=== PATIENT | female | born 1980 | race Asian ===

== ENCOUNTER 2024-10-02 03:09 | Emergency (ER) | payer BC, SELFPAY ==
[2024-10-02 03:18] VITALS: BP 148/85; PULSE 96; RESP 18; TEMP 36.7; O2SAT 97; BMI 25.4
[2024-10-02 03:31] LABS: MANUAL DIFF FLAG NO
[2024-10-02 03:32] LABS: Basophils Absolute Auto 0.1 X10*3/uL (0.0-0.2); Basophils Percent Auto 0.5 % (0-2); Eosinophils Absolute Auto 0.5 X10*3/uL (0.0-0.4); Eosinophils Percent Auto 5.3 % (0-4); Hematocrit 36.6 % (37.0-47.0); Hemoglobin 11.9 g/dl (12.0-16.0); Imm Gran Abs Auto 0.03 X10*3/uL (0.00-0.03); Imm Gran Pct Auto 0.3 % (0.0-0.4); Lymphocytes Percent Auto 20.5 % (20-40); Mean Corpuscular HGB Conc 32.5 g/dl (31.0-35.0); Mean Corpuscular Volume 76.9 fL (80.0-98.0); Mean Platelet Volume 9.4 fL (9.4-12.3); Monocytes Absolute Auto 0.7 X10*3/uL (0.1-1.2); Monocytes Percent Auto 6.9 % (2-11); Neutrophils Absolute Auto 6.4 x10*3/uL (2.0-8.3); Neutrophils Percent Auto 66.5 % (45-73); Platelet Count 375 X10*3/uL (160-400); Red Blood Count 4.76 X10*6/uL (4.20-5.50); Red Cell Distribution Width 18.7 % (11.0-16.0); White Blood Count 9.6 X10*3/uL (4.8-10.8)
[2024-10-02 03:41] LABS: Appearance Urine Turbid; Color Urine Orange; Glucose Urine UA Negative (Negative); Leukocyte Esterase Urine Large (3+) (Negative); Nitrite Urine Positive (Negative); PH 5.5 (5.0-9.0); UMIC TRIGGER UACC YES; Urine Blood Large (3+) (Negative); Urine Ketones Negative (Negative); Urine Protein 300 (3+) mg/dL (Neg-Trace)
[2024-10-02 03:44] LABS: Bacteria Urine Trace (None Seen); Hyaline Casts Urine 0-2 /LPF (0-2); RBC Urine >20 /HPF (0-2); Squamous Epithelial Cell Urine 0-2 /HPF (0-2); UACC Culture Trigger YES; WBC Urine >50 /HPF (0-5)
[2024-10-02 03:46] LABS: Alanine Aminotransferase 20 U/L (0-31); Albumin Level 4.3 g/dL (3.5-5.0); Alkaline Phosphatase 66 U/L (39-117); Anion Gap 14 (12-20); Aspartate Amino Transferase 18 U/L (5-31); Bilirubin Total 0.4 mg/dL (0.0-1.0); Blood Urea Nitrogen 8 mg/dL (9-16); Carbon Dioxide 24 mmol/L (22-29); Chloride 107 mmol/L (96-108); Creatinine Clr Calc Pharmacy 65.5; Estimated Glomerular Filt Rate > 60; Glucose Random 120 mg/dL (60-115); Potassium 3.9 mmol/L (3.3-5.1); Sodium 141 mmol/L (135-145); Total Protein 7.5 g/dL (6.5-8.0)
[2024-10-02 04:01] LABS: UPreg QC Valid YES; Urine Pregnancy NEGATIVE (NEGATIVE)
--- NOTE | 2024-10-02 04:04 | ED_ITS ---
HPI - Female Genitourinary General Chief complaint: Urogenital-Female Stated complaint: UTI Time Seen by Provider: 10/02/24 04:04 Source: patient Mode of arrival: ambulatory Limitations: no limitations History of Present Illness ED Provider: denise MATHEW Narrative: Patient is coming home for dysuria and frequency for last 12 hours no flank pain no nausea no vomiting history of UTI 4 months ago no fever no chills Related Data Previous Rx's ?Medication ?Instructions ?Recorded nitrofurantoin 100 mg PO Q12H 7 days #14 caps 10/02/24 monohydrate/macrocrystals 100 mg capsule (Macrobid) phenazopyridine 200 mg tablet 200 mg PO TID 2 days #6 tabs 10/02/24 (Pyridium) Allergies Allergy/AdvReac Type Severity Reaction Status Date / Time ibuprofen Allergy Swelling Verified 10/02/24 03:21 Review of Systems 2 Review of Systems: Yes all other systems are reviewed and are negative PMFSH Social History Social History Alcohol intake: never Smoked in Last 30 Days: No Use of substances other than those prescribed or required for medical reasons: No Any prior treatment program specific to substance use: No Advance Directives: No Advance Directives Information Provided: No Do you have a plan to hurt others: No Plan Patient : No Physical Exam 2 Vital Signs: Vital Signs: Last Vital Signs Temp 98.1 F 10/02/24 04:23 Pulse 96 10/02/24 04:23 Resp 18 10/02/24 04:23 BP 148/85 H 10/02/24 04:23 Pulse Ox 97 10/02/24 04:23 O2 Del Method Room Air 10/02/24 04:23 BMI result Body Mass Index 25.4 Appearance: Alert. Oriented X3. No acute distress. Eyes: No pallor or icterus ENT: Pharynx normal. Oral Mucosa moist Neck: Normal inspection. Neck supple. CVS: Normal heart rate and rhythm. Pulses normal. Respiratory: No respiratory distress. Equal air entry bilateral, no wheezing/rales/rhonchi Abdomen: Soft and nontender. Bowel sounds are present, no mass palpable, no CVA tenderness Skin: Skin warm and dry. Normal skin color. Normal skin turgor. Extremities: No lower extremity edema. No calf tenderness Neuro: Oriented X 3. No motor deficit. Medications Administered Discontinued Medications Generic Name Dose Route Start Last Admin Trade Name Paulie PRN Reason Stop Dose Admin Nitrofurantoin Macrocrystals 100 mg 10/02/24 04:04 10/02/24 04:10 Nitrofurantoin Monohyd/M-Cryst 100 Mg Capsule PO 10/02/24 04:05 100 mg ONCE ONE Administration Oxycodone HCl 5 mg 10/02/24 04:07 10/02/24 04:10 Oxycodone Hcl Immed Release 5 Mg Tablet PO 10/02/24 04:08 5 mg ONCE ONE Administration Phenazopyridine HCl 200 mg 10/02/24 04:04 10/02/24 04:10 Phenazopyridine Hcl 200 Mg Tablet PO 10/02/24 04:05 200 mg ONCE ONE Administration Medical Decision Making Medical Decision Making MDM Narrative: Patient with uncomplicated UTI will prescribe Macrobid Lab Data MDM Lab Attestation statement: I reviewed the patient's lab results. 10/02/24 03:28 10/02/24 03:28 Labs: Lab Results 10/02/24 10/02/24 Range/Units 03:28 03:31 WBC 9.6 (4.8-10.8) X10*3/uL RBC 4.76 (4.20-5.50) X10*6/uL Hgb 11.9 L (12.0-16.0) g/dl Hct 36.6 L (37.0-47.0) % MCV 76.9 L (80.0-98.0) fL MCH 25.0 L (27.0-33.0) pg MCHC 32.5 (31.0-35.0) g/dl RDW 18.7 H (11.0-16.0) % Plt Count 375 (160-400) X10*3/uL MPV 9.4 (9.4-12.3) fL Immature Gran % (Auto) 0.3 (0.0-0.4) % Neut % (Auto) 66.5 (45-73) % Lymph % (Auto) 20.5 (20-40) % [place] % (Auto) 6.9 (2-11) % Eos % (Auto) 5.3 H (0-4) % Baso % (Auto) 0.5 (0-2) % Lymph # (Auto) 2.0 (1.2-4.9) X10*3/uL [place] # (Auto) 0.7 (0.1-1.2) X10*3/uL Eos # (Auto) 0.5 H (0.0-0.4) X10*3/uL Baso # (Auto) 0.1 (0.0-0.2) X10*3/uL Abs Immat Gran (auto) 0.03 (0.00-0.03) X10*3/uL Absolute Neuts (auto) 6.4 (2.0-8.3) x10*3/uL Absolute Nucleated RBC 0.000 (0.0-0.012) X10*3/uL Nucleated RBC % (auto) 0.0 (0.0-0.2) /100WBC Sodium 141 (135-145) mmol/L Potassium 3.9 (3.3-5.1) mmol/L Chloride 107 (96-108) mmol/L Carbon Dioxide 24 (22-29) mmol/L Anion Gap 14 (12-20) BUN 8 L (9-16) mg/dL Creatinine 0.87 (0.5-1.4) mg/dL Estim Creat Clear Calc 65.5 Estimated GFR > 60 Random Glucose 120 H (60-115) mg/dL Calcium 10.0 (8.4-10.2) mg/dL Total Bilirubin 0.4 (0.0-1.0) mg/dL AST 18 (5-31) U/L ALT 20 (0-31) U/L Alkaline Phosphatase 66 (39-117) U/L Total Protein 7.5 (6.5-8.0) g/dL Albumin 4.3 (3.5-5.0) g/dL Urine Color [place] A Urine Appearance Turbid Urine pH 5.5 (5.0-9.0) Ur Specific [place] 1.010 (1.005-1.025) Urine Protein 300 (3+) H (Neg-Trace) mg/dL Urine Glucose (UA) Negative (Negative) mg/dL Urine Ketones Negative (Negative) mg/dL Urine Blood Large (3+) H (Negative) Urine Nitrite Positive H (Negative) Ur Leukocyte Esterase Large (3+) H (Negative) Urine RBC >20 H (0-2) /HPF Urine WBC >50 H (0-5) /HPF Ur Squamous Epith Cells 0-2 (0-2) /HPF Urine Bacteria Trace (None Seen) Hyaline Casts 0-2 (0-2) /LPF Urine Test NEGATIVE (NEGATIVE) Discharge Plan Discharge Clinical Impression: Urinary tract infection Patient Disposition: Home, Self-Care Instructions: Urinary Tract Infection in Women (DC) Additional Instructions: Drink plenty of fluids Antibiotic as prescribed Follow up with PCP if not better Prescriptions: New nitrofurantoin monohyd/m-cryst [Macrobid] 100 mg capsule 100 mg PO Q12H 7 Days Qty: 14 0RF Rx Instructions: must administer with a meal/food phenazopyridine [Pyridium] 200 mg tablet 200 mg PO TID 2 Days Qty: 6 0RF Interventions: ED Discharge Assessment Last Done: 10/02/24 04:23 Discharge Date/Time: 10/02/24 04:15 Print Language: [place]
[2024-10-02] MEDS: Nitrofurantoin Monohyd/M-Cryst 100 MG CAPSULE PO (04:10)
[2024-10-02] MEDS: oxyCODONE HCl Immed Release 5 MG TABLET PO (04:10)
[2024-10-02] MEDS: Phenazopyridine HCL 200 MG TABLET PO (04:10)
[2024-10-02 04:23] VITALS: BP 148/85; PULSE 96; RESP 18; TEMP 36.7; O2SAT 97
== END 2024-10-02 04:15 | disposition home or self-care (01) ==
PROVIDERS: Emergency Provider Internal Medicine
DX: N39.0 Urinary tract infection, site not specified (principal); Z79.899 Other long term (current) drug therapy
CPT/HCPCS: 36415; 80053; 81001; 81025; 85025; 87086; 87088; 87186; 99283; 99284